=== PATIENT | female | born 1955 | race Caucasian/White ===

== ENCOUNTER 2016-09-30 05:30 | Day surgery (SDC) | payer OTHER ==
[~2016-09-30 05:30] MED LIST: IV START KIT ONE; LACTATED RINGERS 1,000 ML ONE
[2016-09-30] MEDS ORDERED: LIDOCAINE 1% 2 ML VIAL ID PRN (05:57)
[2016-09-30] MEDS ORDERED: CEFAZOLIN SODIUM 2 GRAM PREMIX 2 G in Premix (D5W) 100 ml 1 EACH IV PRN (05:57)
[2016-09-30] MEDS ORDERED: LACTATED RINGERS 1,000 ML IV SCH ×3 (05:57→08:54)
[2016-09-30] MEDS ORDERED: BUPIVACAINE 0.25% EPI PF 30 ML VIAL ONE (06:55)
[2016-09-30] MEDS ORDERED: MIDAZOLAM HCL 5 MG/5 ML VIAL ONE (07:05)
[2016-09-30] MEDS ORDERED: FENTANYL 100 MCG/2 ML VIAL ONE (07:05)
[2016-09-30] MEDS ORDERED: BUPIVACAINE 0.5% W/EPI SDV 30 ML VIAL ONE (07:23)
[2016-09-30] MEDS ORDERED: PROPOFOL 20 ML IV ONE ×2 (07:24→08:00)
[2016-09-30] MEDS ORDERED: DEXAMETHASONE SOD PHOS 4 MG/1 ML VIAL ONE (07:24)
[2016-09-30] MEDS ORDERED: ONDANSETRON 4 MG/2ML 2 ML VIAL ONE (07:24)
[2016-09-30] MEDS ORDERED: EPHEDRINE SULFATE UD SYR 25 MG 25 MG/5 ML SYRINGE IV ONE ×2 (07:36→07:49)
[2016-09-30] MEDS ORDERED: FENTANYL 100 MCG/2 ML VIAL IV PRN (07:38)
[2016-09-30] MEDS ORDERED: PROMETHAZINE HCL 25 MG/ML VIAL IM PRN (07:38)
[2016-09-30] MEDS ORDERED: ATROPINE SULFATE 0.4 MG/1 ML VIAL IV PRN (07:38)
[2016-09-30] MEDS ORDERED: ONDANSETRON 4 MG/2ML 2 ML VIAL IV PRN (07:38)
[2016-09-30] MEDS ORDERED: LIDOCAINE 1% (PRES FREE) 30 ML VIAL ONE (07:38)
[2016-09-30] MEDS ORDERED: NALOXONE HCL 0.4 MG/ML VIAL IV PRN (07:38)
[2016-09-30] MEDS ORDERED: OXYCODONE/ACETAMINOPHEN 5/325 MG TABLET PO PRN (08:54)
[2016-09-30] MEDS ORDERED: HYDROMORPHONE HCL 1 MG/ML SYRINGE IV PRN (08:54)
[2016-09-30] MEDS ORDERED: OXYCODONE/ACETAMINOPHEN 5/325 MG TABLET ONE (10:03)
--- NOTE | 2016-09-30 15:59 | PCMBPN ---
Brief Post Op Note: Date of Procedure: 09/30/16 Start Time: about 730 Preoperative Diagnosis: 1. Left breast ductal ectasia Postoperative Diagnosis: 1. Same Procedure: Excision left breast ducts Surgeon: Cortney Chaparro MD Assist:Meagan Otto Anesthesia: MAC w/ Local Findings: see dictation Condition: stable Complications: none IV Fluids: see anesthesia report Urine Output: not recorded Estimated Blood Loss: 5 mLs Tourniquet Time: N/A Specimens: Left breast biopsy Implants: n/a Drains: [N/A]
--- NOTE | 2016-09-30 17:52 | OP ---
BENJAMIN RUSHING [id number] : 1955 DATE OF SERVICE: September 30, 2016 PREOPERATIVE DIAGNOSIS: Left breast ductal ectasia. POSTOPERATIVE DIAGNOSIS: Left breast ductal ectasia. PROCEDURE PERFORMED: LEFT BREAST DUCT EXCISION. SURGEON: Cortney Chaparro M.D. ANESTHESIA: Monitored anesthesia care. INSTRUCTOR PILOT: Giovanni Hussein FINDINGS: A little drainage of serous fluid as we were dissecting the ducts from the breast tissue. No worrisome findings within the tissue as we were working. TECHNIQUE: The patient was brought back to the operating room and placed under monitored anesthesia care. The left breast was prepped and draped in sterile surgical fashion. Local anesthetic was placed around the areola and at the inferior medial quadrant. A #15 blade scalpel was used to make a curvilinear incision at the outer edge of the areola. Electrocautery was used for hemostasis and to dissect right along the skin to the nipple. As we were cutting through the ducts, some serous fluid was released and I did get a little bit to the skin at the edge of the nipple when I was trying to make sure that I went in deep to get the duct out. I ended up removing the ducts from under the nipple and then carried my dissection a little deep to this. The tissue looked like normal breast tissue with fatty replacement. Once I took out a section of tissue underneath the nipple, I marked it with short superior and long lateral and double deep stitches, and sent it for permanent specimen. I irrigated the cavity, used electrocautery for hemostasis. I used #2-0 Vicryl to close the cavity down and make sure that it fit well. Where I burned the nipple, I cut the burned tissue out and closed that with #4-0 Monocryl, and I closed the periareolar incision with #4-0 Monocryl. Glue was applied, and the patient was awakened and returned to recovery room in stable condition. All needle, instrument and sponge counts were correct at the end of the case.
--- NOTE | 2016-10-03 14:55 | SURGPATH ---
[facility] [address] [place] [id number] Patient Name: BENJAMIN RUSHING MR#: [id number] : 1955 Gender: F Specimen #: [id number] Collected: 09/30/2016 Received: 10/02/2016 Reported: 10/03/2016 Submitting Phys: CUCO NEVAREZ Copy To Phys: [facility] Clinical History / Pre-Operative Diagnosis: Left nipple duct ectasia Specimen Source / Surgical Procedure Performed: Left breast biopsy (short-superior, long-lateral, double-deep) Intraoperative Consult: Time intact specimen was in formalin, 46.5 hours; time cut specimen was in formalin, nine hours. Interpretation: BREAST, LEFT, LUMPECTOMY: - FIBROCYSTIC CHANGE. - NO EVIDENCE OF MALIGNANCY. Electronically Signed Out James Arambula M.D., Ph.D. Gross Description: The specimen is received in a formalin filled container labeled with the patient's name and "left breast biopsy". A previously oriented, lobular biopsy of yellow-musa, fibrofatty breast tissue has a short stitch at superior, long stitch at lateral and a double stitch at deep (posterior). The 2 g biopsy is 2.7 cm from anterior to posterior, 1.7 cm in superior to inferior and 1.3 cm from medial to lateral. The surgical margins are inked as follows: Superior-blue, lateral-yellow, inferior-green, medial-red, anterior-orange and posterior-black. Sectioning reveals no nodule or induration. The specimen is entirely submitted sequentially as two sections each in cassettes A-C, from anterior to posterior respectively. Alexandro Veras Microscopic Description: Examination of multiple sections from the left breast lumpectomy specimen shows fibroadipose connective tissue and breast parenchyma with cystically dilated ducts with associated ductal hyperplasia. There is no evidence of malignancy. 1: [id number] N60.12
== END 2016-09-30 10:22 | disposition home or self-care (01) ==
LOC: SDC 05:30
PROVIDERS: ATTEND Surgery
PROC: 0HBU0ZZ Excision of Left Breast, Open Approach (ICD-10-PCS; principal; 2016-09-30)
DX: N60.42 Mammary duct ectasia of left breast (principal); N60.12 Diffuse cystic mastopathy of left breast; I10 Essential (primary) hypertension; E78.5 Hyperlipidemia, unspecified
CPT/HCPCS: 19120; J3010; J1100; A9270; J2250; J2001; J2405; J7120